=== PATIENT | female | born 1940 | race Caucasian/White ===

== ENCOUNTER → 2020-04-15 | Outpatient (CLI) | payer MEDICARE ==
--- NOTE | 2020-04-15 16:00 | US ---
EXAMINATION TYPE: US carotid duplex BILAT DATE OF EXAM: 04/15/2020 COMPARISON: NONE CLINICAL HISTORY: 79-year-old female R20.0 right facial numbness. TECHNIQUE: Carotid duplex ultrasound examination. Indirect Doppler criteria was utilized. FINDINGS: EXAM MEASUREMENTS: RIGHT: Peak Systolic Velocity (PSV) cm/sec ----- Right CCA: 97.4 ----- Right ICA: 105 ----- Right ECA: 125 ICA/CCA ratio: 1.0 RIGHT: End Diastole cm/sec ----- Right CCA: 14.9 ----- Right ICA: 24 ----- Right ECA: 9.0 LEFT: Peak Systolic Velocity (PSV) cm/sec ----- Left CCA: 79.3 ----- Left ICA: 97.4 ----- Left ECA: 125 ICA/CCA ratio: 1.2 LEFT: End Diastole cm/sec ----- Left CCA: 13.6 ----- Left ICA: 23.4 ----- Left ECA: 8.5 VERTEBRALS (direction of flow): Right Vertebral: Antegrade Left Vertebral: Antegrade Rhythm: Normal Ware Tester notes: No significant stenosis seen IMPRESSION: No hemodynamically significant internal carotid artery stenosis on either side. Criteria for Assigning % of Stenosis / Diameter reduction (Estimation based on the indirect measurements of the internal carotid artery velocities (ICA PSV). 1. Normal (no stenosis)=ICA PSV < 125 cm/s: ratio < 2.0: ICA EDV<40 cm/s. 2. Less than 50% stenosis=ICA PSV < 125 cm/s: ratio < 2.0: ICA EDV<40 cm/s. 3. 50 to 69% stenosis=ICA PSV of 125 to 230 cm/s: ration 2.0 ? 4.0: ICA EDV 40-100 cm/s. 4. Greater than 70% stenosis to near occlusion= ICA PSV > 230 cm/s: ratio > 4.0: ICA EDV > 100 cm/s. 5. Near occlusion= ICA PSV velocities may be low or undetectable: variable ratio and ICA EDV. 6. Total occlusion=unable to detect flow.
--- NOTE | 2020-04-16 12:02 | ECHOF ---
Referral Reason:R20.0 r facial numbness MEASUREMENTS -------- HEIGHT: 157.5 cm WEIGHT: 71.7 kg BP: RVIDd: 2.9 cm (< 3.3) IVSd: 1.1 cm (0.6 - 1.1) LVIDd: 4.2 cm (3.9 - 5.3) LVPWd: 1.2 cm (0.6 - 1.1) IVSs: 1.5 cm LVIDs: 2.6 cm LVPWs: 1.7 cm LAESV Index (A-L): 14.88 ml/m Ao Diam: 2.9 cm (2.0 - 3.7) AV Cusp: 1.9 cm (1.5 - 2.6) LA Diam: 3.3 cm (2.7 - 3.8) MV EXCURSION: 17.896 mm (> 18.000) MV EF SLOPE: 167 mm/s (70 - 150) EPSS: 0.2 cm RAP: 5.00 mmHg RVSP: 25.69 mmHg FINDINGS -------- Sinus rhythm. Resting tachycardia (HR>100bpm). This was a technically adequate study. The left ventricular size is normal. Left ventricular wall thickness is normal. Overall left vent ricular systolic function is normal with, an EF between 55 - 60 %. The diastolic filling pattern is normal for the age of the patient {E/E'}. The right ventricle is normal in size. Normal LA size by volume 22+/-6 ml/m2. The right atrial size is normal. Aneurysmal Interatrial septum. The aortic valve is trileaflet, and appears structurally normal. No aortic stenosis or regurgitation. The mitral valve leaflets are mildly thickened. There is trace mitral regurgitation. The tricuspid valve appears structurally normal. Mild tricuspid regurgitation present. There is n o evidence of pulmonary hypertension. The right ventricular systolic pressure, as measured by Doppl er, is 25.69mmHg. There is no pulmonic regurgitation present. The aortic root size is normal. The inferior vena cava is mildly dilated. There is no pericardial effusion. CONCLUSIONS -------- 1. Left ventricular wall thickness is normal. 2. Overall left ventricular systolic function is normal with, an EF between 55 - 60 %. 3. The diastolic filling pattern is normal for the age of the patient {E/E'} 4. Normal LA size by volume 22+/-6 ml/m2. 5. Aneurysmal Interatrial septum. 6. The aortic valve is trileaflet, and appears structurally normal. No aortic stenosis or regurgitati on. 7. Mild tricuspid regurgitation present. 8. There is no pericardial effusion. FISH CHECKER: Yu Nash RDCS
== END | disposition home or self-care (01) ==
LOC: RADUSWWP 13:35
PROVIDERS: ATTEND Internal Medicine
DX: I25.3 Aneurysm of heart (principal); I07.1 Rheumatic tricuspid insufficiency; R20.0 Anesthesia of skin; R29.810 Facial weakness
CPT/HCPCS: 93306; 93880

== ENCOUNTER 2021-06-23 17:17 | Emergency (ER) | payer MEDICARE ==
[2021-06-23 17:32] VITALS: BP 140/72; RESP 18; TEMP 98.6
[2021-06-23] MEDS ORDERED: CYCLOBENZAPRINE 5 MG TAB PO STA (19:36)
--- NOTE | 2021-06-23 19:40 | ED ---
General Adult HPI - General Chief complaint: Back Pain/Injury Stated complaint: back pain Time Seen by Provider: 06/23/21 18:37 Source: patient, RN notes reviewed Mode of arrival: ambulatory Limitations: no limitations - History of Present Illness Initial comments: 80-year-old female presents to the emergency department for evaluation of left low back pain that she describes as spasming discomfort. Patient states her pain began a week and half ago after working outside in the yard. Patient states she is active and has had this discomfort previously. Patient states she was given something to help relax her muscles by her PCP a few years ago and reported improvement. Patient denies any other injuries or complaints at this time. No fever, chills, headache, neck pain, chest pain, shortness of breath, difficulty breathing, abdominal pain, nausea, vomiting, diarrhea, or dysuria. Denies loss of bowel or bladder control, saddle anesthesia, or foot drop. - Related Data Previous Rx's Medication Instructions Recorded Cyclobenzaprine [Flexeril] 5 mg PO BID PRN #10 tablet 06/23/21 Allergies Allergy/AdvReac Type Severity Reaction Status Date / Time No Known Allergies Allergy Verified 06/23/21 17:26 Review of Systems ROS Statement: Those systems with pertinent positive or pertinent negative responses have been documented in the HPI. ROS Other: All systems not noted in ROS Statement are negative. Past Medical History Past Medical History: Hyperlipidemia History of Any Multi-Drug Resistant Organisms: None Reported Past Surgical History: No Surgical Hx Reported Past Psychological History: No Psychological Hx Reported Smoking Status: Never smoker Past Alcohol Use History: None Reported Past Drug Use History: None Reported General Exam Limitations: no limitations (Very pleasant well-developed, well-nourished female in no acute distress. Initial temperature 98.6, respirations 18, blood pressure 140/72, pulse ox 98% on room air.) General appearance: alert, in no apparent distress Respiratory exam: Present: normal lung sounds bilaterally. Absent: respiratory distress, wheezes, rales, rhonchi, stridor Cardiovascular Exam: Present: regular rate, normal rhythm, normal heart sounds. Absent: systolic murmur, diastolic murmur, rubs, gallop, clicks GI/Abdominal exam: Present: soft, normal bowel sounds. Absent: distended, tenderness, guarding, rebound, rigid Extremities exam: Present: normal inspection, full ROM, normal capillary refill. Absent: tenderness, pedal edema, joint swelling, calf tenderness Back exam: Present: muscle spasm (left low back). Absent: CVA tenderness (R), CVA tenderness (L), paraspinal tenderness, vertebral tenderness Neurological exam: Present: alert, oriented X3 Psychiatric exam: Present: normal affect, normal mood Skin exam: Present: warm, dry, intact, normal color. Absent: rash Course Vital Signs 06/23/21 17:26 Temperature 98.6 F Respiratory 18 Rate Blood Pressure 140/72 O2 Sat by Pulse 98 Oximetry Medical Decision Making - Medical Decision Making 80-year-old female with a past medical history of high cholesterol presents to the emergency department for evaluation low back pain that she describes as spasms. Upon exam, patient is well-appearing and in no acute distress. She is able to move freely. Vital signs are stable. She has no trauma or injury. States she has been working out in her yard and suspects that this discomfort is related to muscle spasms. Patient denies saddle anesthesia, foot drop, or loss of bowel or bladder control. Lidocaine patch was applied and patient was given a muscle relaxer. She verbalizes improvement in readiness for discharge. She is instructed to follow up with her PCP for recheck. Return parameters discussed in detail. Patient verbalizes understanding and agrees with this plan. Attending: Rich Fulton Clinical Impression: Spasm of muscle, back Disposition: HOME SELF-CARE Condition: Stable Instructions (If sedation given, give patient instructions): Muscle Spasm (ED), Back Pain (ED) Additional Instructions: Maintaining mobility with frequent ambulation. Limit exertional activity and heavy lifting. May take muscle relaxer twice daily if needed. Utilize heating pad for no more than 20 minutes per hour. Follow-up with your PCP for a recheck by the end of the week. Return to the emergency department with any new, worsening, or concerning symptoms. Prescriptions: Cyclobenzaprine [Flexeril] 5 mg PO BID PRN #10 tablet PRN Reason: Muscle Spasm Is patient prescribed a controlled substance at d/c from ED?: No Referrals: Giorgi Ren MD [Primary Care Provider] - 1-2 days Time of Disposition: 20:27
[2021-06-23] MEDS ORDERED: LIDOCAINE 5% PATCH TOPICAL SCH (19:45)
== END 2021-06-23 20:31 | disposition home or self-care (01) ==
LOC: EC 17:17
DX: M62.830 Muscle spasm of back (principal); E78.5 Hyperlipidemia, unspecified
CPT/HCPCS: 99283

== ENCOUNTER 2022-02-14 11:50 | Emergency (ER) | payer MEDICARE ==
[2022-02-14 12:50] VITALS: TEMP 98.6
--- NOTE | 2022-02-14 13:23 | ED ---
URI HPI - General Chief Complaint: Upper Respiratory Infection Stated Complaint: cough, congestion Time Seen by Provider: 02/14/22 13:05 Source: patient, RN notes reviewed Mode of arrival: ambulatory Limitations: no limitations - History of Present Illness Initial Comments: 81-year-old female with history of pulmonary disease who states for past several days she's had a persistent hacking cough with minimal amounts of phlegm also sore throat along with it. Intermittent rhinorrhea no earaches no headache no fevers chills or sweats reported no overt chest pain. No abdominal pain. No other current complaints or modifying factors. She denies any exposure to known patients with COVID-19 or influenza. MD Complaint: cough, sore throat - Related Data Previous Rx's Medication Instructions Recorded Cyclobenzaprine [Flexeril] 5 mg PO BID PRN #10 tablet 06/23/21 Nirmatrelvir/Ritonavir [Paxlovid 1 each PO BID #10 each 02/14/22 150-100 mg Pack (Eua)] Allergies Allergy/AdvReac Type Severity Reaction Status Date / Time No Known Allergies Allergy Verified 02/14/22 12:50 Review of Systems ROS Statement: Those systems with pertinent positive or pertinent negative responses have been documented in the HPI. ROS Other: All systems not noted in ROS Statement are negative. Past Medical History Past Medical History: Hyperlipidemia History of Any Multi-Drug Resistant Organisms: None Reported Past Surgical History: No Surgical Hx Reported Past Psychological History: No Psychological Hx Reported Smoking Status: Never smoker Past Alcohol Use History: None Reported Past Drug Use History: None Reported General Exam - General Exam Comments Initial Comments: This is a well-developed well-nourished awake alert oriented 4 female Limitations: no limitations General appearance: alert, in no apparent distress Head exam: Present: atraumatic, normocephalic, normal inspection Eye exam: Present: normal appearance, PERRL, EOMI. Absent: scleral icterus, conjunctival injection, periorbital swelling ENT exam: Present: normal exam, mucous membranes moist, other (No overt hyperemia or exudates) Neck exam: Present: normal inspection, full ROM, other (No stridor JVD or bruits). Absent: tenderness, meningismus, lymphadenopathy Respiratory exam: Present: normal lung sounds bilaterally. Absent: respiratory distress, wheezes, rales, rhonchi, stridor, chest wall tenderness Cardiovascular Exam: Present: regular rate, normal rhythm, normal heart sounds. Absent: systolic murmur, diastolic murmur, rubs, gallop, clicks GI/Abdominal exam: Present: soft, normal bowel sounds. Absent: distended, tenderness, guarding, rebound, rigid Extremities exam: Present: normal inspection, full ROM, normal capillary refill. Absent: tenderness, pedal edema, joint swelling, calf tenderness Back exam: Present: normal inspection Neurological exam: Present: alert, oriented X3, CN II-XII intact Psychiatric exam: Present: normal affect, normal mood Skin exam: Present: warm, dry, intact, normal color. Absent: rash Course Vital Signs 02/14/22 02/14/22 12:47 14:15 Temperature 98.6 F Pulse Rate 105 H 100 Respiratory 20 18 Rate Blood Pressure 148/66 130/80 O2 Sat by Pulse 96 98 Oximetry Medical Decision Making - Medical Decision Making The patient does have positive RSV and COVID-19 swabs up. I did discuss the findings with her and her . Patient be placed on Paxlovid. She'll also was encouraged to use vitamin C vitamin D3 and zinc. - Lab Data Lab Results 02/14/22 Range/Units 12:53 Influenza Type A (PCR) Not Detected (Not Detectd) Influenza Type B (PCR) Not Detected (Not Detectd) RSV (PCR) Detected A (Not Detectd) SARS-CoV-2 (PCR) Detected A (Not Detectd) - Radiology Data Radiology results: image reviewed (I did repeat chest x-ray no evidence of acute processes.) Disposition Clinical Impression: COVID-19, RSV (acute bronchiolitis due to respiratory syncytial virus), Bronchitis Disposition: HOME SELF-CARE Condition: Good Instructions (If sedation given, give patient instructions): Coronavirus Disease 2019 (COVID-19), How To Wash Your Hands (ED), Droplet Precautions (ED), Face Coverings (Masks) and COVID-19 (ED), Social Distancing Guidelines for COVID-19 (ED), How to Recover from COVID-19 at Home (ED) Additional Instructions: Vitamin C 1 g per day, vitamin D3 4000 5000 international units daily, zinc up to 220 mg per day, oral fluids Prescriptions: Nirmatrelvir/Ritonavir [Paxlovid 150-100 mg Pack (Eua)] 1 each PO BID #10 each Is patient prescribed a controlled substance at d/c from ED?: No Referrals: Giorgi Ren MD [Primary Care Provider] - 1-2 days Decision Date: 02/14/22 Decision Time: 14:42
--- NOTE | 2022-02-14 14:02 | XR ---
EXAMINATION TYPE: XR chest 2V DATE OF EXAM: 02/14/2022 COMPARISON: NONE HISTORY: Cough TECHNIQUE: Frontal and lateral views of the chest are obtained. FINDINGS: There is no focal air space opacity, pleural effusion, or pneumothorax seen. The cardiac silhouette size is within normal limits. The osseous structures are intact. IMPRESSION: No acute cardiopulmonary process.
[2022-02-14 14:17] VITALS: BP 130/80; PULSE 100; RESP 18
== END 2022-02-14 15:09 | disposition home or self-care (01) ==
LOC: EC 11:50
DX: R05.9 Cough, unspecified (principal); U07.1 COVID-19; B97.4 Respiratory syncytial virus as the cause of diseases classified elsewhere
CPT/HCPCS: 71046; 87636; 99284